=== PATIENT | female | born 1940 | race Caucasian/White ===

== ENCOUNTER 2024-09-07 07:45 | Emergency (ER) | payer MEDICARE ==
[~2024-09-07] VITALS: Ht 165.1 cm; Wt 68.2 kg
[2024-09-07] MEDS: HYDROcodone/acetaminophen 5mg/325mg tablet PO ONE (08:35)
[2024-09-07 09:06] LABS: BASOPHILS # (AUTO) 0.1 X10'3 (0-0.2); EOSINOPHILS # (AUTO) 0.2 X10'3 (0-0.9); EOSINOPHILS % (AUTO) 2.9 % (0-6); HEMOGLOBIN 9.9 g/dl (12.0-16.0); LYMPHOCYTES # (AUTO) 1.8 X10'3 (1.1-4.8); LYMPHOCYTES % (AUTO) 30.3 % (21-51); MEAN CORPUSCULAR HEMOGLOBIN 30.8 PG (27.0-31.0); MEAN CORPUSCULAR HGB CONC 33.1 g/dL (33.0-36.5); MEAN CORPUSCULAR VOLUME 93.2 FL (78-98); MEAN PLATELET VOLUME 7.8 FL (7.4-10.4); MONOCYTES # (AUTO) 0.5 X10'3 (0-0.9); MONOCYTES % (AUTO) 8.5 % (2-12); NEUTROPHILS # (AUTO) 3.4 X10'3 (1.8-7.7); NEUTROPHILS % (AUTO) 57.3 % (42-75); PLATELET COUNT 321 X10'3 (140-440); RED BLOOD COUNT 3.22 X10'6 (4.20-5.60); RED CELL DISTRIBUTION WIDTH 15.4 % (11.5-14.5); WHITE BLOOD COUNT 5.9 X10'3 (4.5-11.0)
[2024-09-07 09:18] LABS: ANION GAP 7 (8-16); BLOOD UREA NITROGEN 36 MG/DL (7-18); BUN/CREATININE RATIO 34.3 (10.0-20.0); CALCIUM 8.9 MG/DL (8.5-10.1); CHLORIDE 101 MMOL/L (99-107); CREATININE 1.05 MG/DL (0.40-0.90); GLUCOSE 97 MG/DL (70-104); POTASSIUM 3.9 MMOL/L (3.5-5.1); SODIUM 138 MMOL/L (135-145); TOTAL CARBON DIOXIDE 30.3 MMOL/L (24-32); eCRCL 35 ML/MIN; eGFR 50 ML/MIN
[2024-09-07 09:21] LABS: APTT 31 SECONDS (22-32); D-DIMER 1.74 MG/L FEU (0-0.50)
[2024-09-07] MEDS: ondansetron 4mg rapidly disintigrating tab PO ONE (10:09)
[2024-09-07] MEDS: morphine 4 MG/ML inj SYRINge IM ONE (10:11)
[2024-09-07 10:16] VITALS: BP 171/84; PULSE 97; O2SAT 99
[2024-09-07 11:13] VITALS: RESP 16
[2024-09-07] MEDS ORDERED: TRAM50TA2 PO (11:30)
[2024-09-07] MEDS ORDERED: ONDA-243 PO (11:30)
[2024-09-07 11:39] VITALS: TEMP 98
== END 2024-09-07 11:40 | disposition home or self-care (01) ==
LOC: ER 07:47
DX: S76.112A Strain of left quadriceps muscle, fascia and tendon, initial encounter (principal); W18.39XA Other fall on same level, initial encounter; Y93.89 Activity, other specified; Y92.89 Other specified places as the place of occurrence of the external cause; Y99.8 Other external cause status
CPT/HCPCS: 36415; 73552; 73560; 80048; 85025; 85379; 85610; 85730; 93971; 96372; 99285; J2270